=== PATIENT | male | born 1990 | race Caucasian/White ===

== ENCOUNTER 2024-01-22 12:15 | Emergency (ER) | payer OTHER ==
[~2024-01-22] VITALS: Ht 177.8 cm; Wt 77.1 kg
[2024-01-22 12:15] VITALS: BP_SYST 137; PULSE 77; RESP 18; TEMP 97.7; O2SAT 97
[2024-01-22] MEDS: HYDROcodone/ACETAMIN 5-325 MG TAB (NORCO/ VICODIN) PO ONE (12:45)
[2024-01-22] MEDS ORDERED: AUG875 PO (13:24)
[2024-01-22 13:47] VITALS: BP_SYST 142; PULSE 76; RESP 18; TEMP 97; O2SAT 98
== END 2024-01-22 13:47 | disposition home or self-care (01) ==
LOC: SED 12:15
DX: S62.634B Displaced fracture of distal phalanx of right ring finger, initial encounter for open fracture (principal); Z79.2 Long term (current) use of antibiotics; W22.8XXA Striking against or struck by other objects, initial encounter; Y93.89 Activity, other specified; Y92.89 Other specified places as the place of occurrence of the external cause; Y99.8 Other external cause status
CPT/HCPCS: 99283